=== PATIENT | female | born 1955 | race Caucasian/White ===

== ENCOUNTER → 2016-09-30 | Outpatient (REF) | payer BC ==
[2016-09-30 10:30] LABS: BILIRUBIN,URINE Negative (Negative); CLARITY,URINE Clear; COLOR,URINE Yellow; GLUCOSE, URINE (UA) Negative (Negative); LEUKOCYTE ESTERASE, URINE Negative (Negative); PH,URINE 6.5 (5.0 - 8.0); UROBILINOGEN,URINE 0.2 mg/dL (0.2-1.0)
[2016-09-30 10:30] LABS: BASOPHILS % (AUTO) 1 % (0-2); EOSINOPHILS # (AUTO) 0.2 10^3uL; EOSINOPHILS % (AUTO) 4 % (0-4); LYMPHOCYTES # (AUTO) 1.4 X10^3; MEAN CORPUSCULAR HEMOGLOBIN 29.7 PG (26.0-34.0); MEAN CORPUSCULAR HGB CONC 33.8 g/dL (31.0-37.0); MEAN CORPUSCULAR VOLUME 88 FL (80-100); MEAN PLATELET VOLUME 10.8 FL (6.0-9.5); MONOCYTES # (AUTO) 0.5 X10^3; MONOCYTES % (AUTO) 9 % (3-11); NEUTROPHILS # (AUTO) 3.1 X10^3; NEUTROPHILS % (AUTO) 60 % (51-67); PLATELET COUNT 272 10^3uL (150-450); WHITE BLOOD COUNT 5.11 10^3uL (4.0-11.0)
[2016-09-30 10:37] LABS: ALBUMIN 3.9 g/dL (3.4-5.0); ANION GAP 13.6 MEQ/L (3-15); CALCULATED IONIZED CALCIUM 4.2 mg/dL (3.8-4.6); TOTAL PROTEIN 6.6 g/dL (6.4-8.5)
[2016-09-30 10:39] LABS: URINE CENTRIFUGED VOLUME 12 mL
== END ==
LOC: LAB 08:21
PROVIDERS: ATTEND Nurse Practitioner Family
DX: Z01.419 Encounter for gynecological examination (general) (routine) without abnormal findings (principal); Z13.6 Encounter for screening for cardiovascular disorders
CPT/HCPCS: 80053; 80061; 81003; 81015; 85025

== ENCOUNTER → 2016-10-03 | Outpatient (CLI) | payer BC | LOC: RAD 09:52 | PROVIDERS: ATTEND Nurse Practitioner Family | DX: Z12.31 Encounter for screening mammogram for malignant neoplasm of breast (principal) ==